=== PATIENT | female | born 1955 | race Caucasian/White ===

== ENCOUNTER 2017-01-10 13:01 | Emergency (ER) | payer MEDICARE, OTHER ==
[~2017-01-10] VITALS: Ht 157.5 cm; Wt 54.5 kg
[~2017-01-10 13:01] MED LIST: ASPI325T PO; CYMB30CA PO; FEXO180 PO; LOMO PO; OXYC15TA PO; OXYC40 PO; VALT500T PO; [UNRECOGNIZED DRUG - OTHER] PO
[2017-01-10 13:03] VITALS: BP 198/80; PULSE 75; RESP 20; TEMP 98.1; O2SAT 99
[2017-01-10 13:09] VITALS: BP 169/74; PULSE 64; RESP 16; TEMP 98; O2SAT 95
--- NOTE | 2017-01-10 13:13 | PD ---
Physical Exam Date Seen by Provider: January 10, 2017 Time Seen by Provider: 13:09 Narrative 61 YOWF HERE UNDER EXPARTE FOR SUBSTANCE ABUSE. H/O MULTIPLE MYELOMA. VSS wating for bed asignment Data Data Last Documented VS Vital Signs Date Time Temp Pulse Resp B/P Pulse Ox O2 Delivery O2 Flow Rate FiO2 01/10/17 13:03 98.1 75 20 198/80 99 Room Air MDM Medical Record Reviewed: No Supervised Visit with BETHANY: Poncho Bravo January 10, 2017 13:13
--- NOTE | 2017-01-10 15:10 | PD ---
HPI Chief Complaint: Psychiatric Symptoms Time Seen by Provider: 14:50 Travel History International Travel<30 days: No Contact w/Intl Traveler<30days: No Traveled to known affect area: No History of Present Illness HPI The patient is 61 years old and arrives to the ER as an ex-parte. Evidently the patient's family pursued the court order because the patient was taking pain medication and xanax to the point of stuporous behavior, drooling, potentially dropping a cigarette in her house and inability to care for herself. Pt has fallen and broken her hip, spilled drinks, and lost consciousness upon standing. These tendencies appear more prominent refer the patient fills her medications. Here she denies HI/SI. She states she has chronic pain, cancer and is managing her pain with her prescription meds. PFSH Past Medical History Anxiety: Yes Cancer: Yes (mutiple myloma) Cardiovascular Problems: No Chemotherapy: Yes (ORAL) Diabetes: Yes Patient Takes Glucophage: No Endocrine: No Genitourinary: No Hepatitis: No Hiatal Hernia: No Immune Disorder: Yes (multiple myloma) Musculoskeletal: No Neurologic: No Psychiatric: No Reproductive: Yes (lesion on the vulva) Respiratory: No Integumentary: Yes (skin CA) Thyroid Disease: No Tetanus Vaccination: < 5 Years Past Surgical History Abdominal Surgery: Yes (lap ibis) AICD: No Cholecystectomy: Yes Gynecologic Surgery: Yes (exp lap removal right ovarian cyst cristela with bso) Hysterectomy: Yes Joint Replacement: Yes (kelsie place in rt hip) Pacemaker: No Social History Alcohol Use: No Tobacco Use: Yes (ppd) Substance Use: No Allergies-Medications (Allergen,Severity, Reaction): Coded Allergies: Dilaudid (Verified Allergy, Intermediate, 12/05/15) severe nausea and vomiting Morphine (Verified Allergy, Intermediate, severe nausea, 12/05/15) Zofran (Verified Allergy, Intermediate, arrythmia, 12/05/15) iv zofran causes arrythmia Reported Meds & Prescriptions Reported Meds & Active Scripts Active Reported [revlimig] 5 mg 1 PO HS Cymbalta (Duloxetine HCl) 30 Mg Cap 60 Mg PO DAILY Lomotil (Diphenoxylate HCl/Atropine) 1 Tab Tab 1 Tab PO Q6H PRN Oxycodone (Oxycodone HCl) 15 Mg Tab 15 Mg PO Q4H PRN Valtrex (Valacyclovir HCl) 500 Mg Tab 500 Mg PO DAILY Madelyn Allergy (Fexofenadine Hcl) 180 Mg Tab 180 Mg PO DAILY OxyCONTIN ER (Oxycodone HCl) 40 Mg Tabcr 40 Mg PO BID PRN Aspirin 325 mg (Aspirin) 325 Mg Tab 325 Mg PO DAILY Review of Systems Except as stated in HPI: all other systems reviewed are Neg Physical Exam Narrative GENERAL: 61 yo F, WNWD, cooperative, pleasant SKIN: Warm and dry. Hyperpigmented lesions about the second medical carpophalangeal articulation is bilaterally. HEAD: Atraumatic. Normocephalic. EYES: Pupils equal and round. No scleral icterus. No injection or drainage. ENT: No nasal bleeding or discharge. Mucous membranes pink and moist. NECK: Trachea midline. No JVD. CARDIOVASCULAR: Regular rate and rhythm. RESPIRATORY: No accessory muscle use. Clear to auscultation. Breath sounds equal bilaterally. GASTROINTESTINAL: Abdomen soft, non-tender, nondistended. Hepatic and splenic margins not palpable. MUSCULOSKELETAL: Extremities without clubbing, cyanosis, or edema. No obvious deformities. NEUROLOGICAL: Awake and alert. No obvious cranial nerve deficits. Motor grossly within normal limits. Five out of 5 muscle strength in the arms and legs. Normal speech. PSYCHIATRIC: Appropriate mood and affect; insight and judgment normal. Data Data Last Documented VS Vital Signs Date Time Temp Pulse Resp B/P Pulse Ox O2 Delivery O2 Flow Rate FiO2 01/10/17 14:52 16 01/10/17 13:09 98.0 64 169/74 95 01/10/17 13:03 Room Air Orders Complete Blood Count With Diff (01/10/17 15:04) Comprehensive Metabolic Panel (01/10/17 15:04) Psych Screen (01/10/17 15:04) Drug Screen, Random Urine (01/10/17 15:04) Alcohol (Ethanol) (01/10/17 15:04) Salicylates (Aspirin) (01/10/17 15:04) Tylenol (Acetaminophen) (01/10/17 15:04) Potassium Chloride (Kcl) (01/10/17 17:15) Labs Laboratory Tests Test 01/10/17 15:30 White Blood Count 4.2 TH/MM3 Red Blood Count 2.65 MIL/MM3 Hemoglobin 9.5 GM/DL Hematocrit 27.2 % Mean Corpuscular Volume 102.7 FL Mean Corpuscular Hemoglobin 35.9 PG Mean Corpuscular Hemoglobin 34.9 % Concent Red Cell Distribution Width 20.8 % Platelet Count 98 TH/MM3 Mean Platelet Volume 7.9 FL Neutrophils (%) (Auto) 60.8 % Lymphocytes (%) (Auto) 25.4 % Monocytes (%) (Auto) 10.8 % Eosinophils (%) (Auto) 2.4 % Basophils (%) (Auto) 0.6 % Neutrophils # (Auto) 2.5 TH/MM3 Lymphocytes # (Auto) 1.1 TH/MM3 Monocytes # (Auto) 0.4 TH/MM3 Eosinophils # (Auto) 0.1 TH/MM3 Basophils # (Auto) 0.0 TH/MM3 CBC Comment AUTO DIFF Differential Comment AUTO DIFF CONFIRMED Sodium Level 143 MEQ/L Potassium Level 2.9 MEQ/L Chloride Level 108 MEQ/L Carbon Dioxide Level 26.2 MEQ/L Anion Gap 9 MEQ/L Blood Urea Nitrogen 8 MG/DL Creatinine 1.07 MG/DL Estimat Glomerular Filtration 52 ML/MIN Rate Random Glucose 84 MG/DL Calcium Level 8.6 MG/DL Total Bilirubin 0.2 MG/DL Aspartate Amino Transf 15 U/L (AST/SGOT) Alanine Aminotransferase 10 U/L (ALT/SGPT) Alkaline Phosphatase 115 U/L Total Protein 6.2 GM/DL Albumin 3.2 GM/DL Salicylates Level 4.3 MG/DL Acetaminophen Level 2.4 MCG/ML Ethyl Alcohol Level LESS THAN 3 MG/DL MDM Medical Decision Making Medical Screen Exam Complete: Yes Emergency Medical Condition: Yes Medical Record Reviewed: Yes Differential Diagnosis Altered mental status/psychosis due to infection/environmental exposure/ metabolic abnormality, polypharmacy, alcohol abuse/intoxication, illicit or prescribed drug abuse, malingering/secondary gain, non-organic psychiatric disease Narrative Course The history of present illness, ROS, physical exam, review of records and medical workup performed for today's visit have reasonably safely excluded organic etiologies for the patient's presenting complaint. We will continue to monitor the patient carefully in the ER until time of evaluation by the psychiatry service. We are available for any additional medical assistance if needed during the patient's ER course. Disposition per discretion of psychiatry is appreciated. CBC & BMP Diagram 01/10/17 15:30 Total protein 6.2 Albumin 3.2 EtOH < 3 APAP 2.4 Slicylates 4.3 Diagnosis Primary Impression: Suicidal risk Segun Jensen MD January 10, 2017 15:10
[2017-01-10 15:53] LABS: AUTOMATED NEUTROPHIL # 2.5 TH/MM3 (1.8-7.7); BASOPHIL % 0.6 % (0.0-2.0); EOSINOPHIL # 0.1 TH/MM3 (0-0.4); EOSINOPHIL % 2.4 % (0.0-4.0); HEMATOCRIT 27.2 % (35.0-46.0); LYMPH % 25.4 % (9.0-44.0); LYMPHOCYTE # 1.1 TH/MM3 (1.0-4.8); MEAN CELL VOLUME 102.7 FL (80.0-100.0); MEAN CORPUSCULAR HEMOGLOBIN 35.9 PG (27.0-34.0); MEAN CORPUSCULAR HGB CONC 34.9 % (32.0-36.0); MONO % 10.8 % (0.0-8.0); NEUT % 60.8 % (16.0-70.0); PLATELET COUNT 98 TH/MM3 (150-450); RED BLOOD COUNT 2.65 MIL/MM3 (4.00-5.30); RED CELL DISTRIBUTION WIDTH 20.8 % (11.6-17.2); WHITE BLOOD COUNT 4.2 TH/MM3 (4.0-11.0)
[2017-01-10 16:35] LABS: ACETAMINOPHEN 2.4 MCG/ML (10.0-30.0); ALKALINE PHOSPHATASE 115 U/L (45-117); ALT (GPT) 10 U/L (10-53); ANION GAP 9 MEQ/L (5-15); AST (GOT) 15 U/L (15-37); BICARBONATE 26.2 MEQ/L (21.0-32.0); BLOOD UREA NITROGEN 8 MG/DL (7-18); CHLORIDE 108 MEQ/L (98-107); GLOMERULAR FILTRATION RATE 52 ML/MIN (>89); SODIUM (NA) 143 MEQ/L (136-145); TOTAL BILIRUBIN ADULT 0.2 MG/DL (0.2-1.0)
[2017-01-10 16:41] LABS: POTASSIUM 2.9 MEQ/L (3.5-5.1)
[2017-01-10 16:55] LABS: HEMO FLAGS AUTO DIFF; SCAN/DIFF AUTO DIFF CONFIRMED
[2017-01-10] MEDS ORDERED: POTASSIUM CHLORIDE 20 MEQ CONTROLLED RELEASE TAB PO ONE (17:15)
[2017-01-10 18:19] LABS: AMPHETAMINE, URINE NEG (NEG); BARBITURATES, URINE NEG (NEG); COCAINE, URINE NEG (NEG)
[2017-01-10 20:25] VITALS: BP 180/87; PULSE 73; RESP 16; O2SAT 98
[2017-01-10] MEDS ORDERED: ACETAMINOPHEN/HYDROcodone 325 MG/5 MG TAB PO ONE (20:30)
[2017-01-11] MEDS ORDERED: IMODTAB (02:40)
[2017-01-11] MEDS ORDERED: ALPR.5 PO (02:40)
[2017-01-11] MEDS ORDERED: VALA500T PO (02:40)
[2017-01-11] MEDS ORDERED: [UNRECOGNIZED DRUG - OTHER] PO (02:40)
[2017-01-11] MEDS ORDERED: OXYC15TA PO (02:40)
[2017-01-11] MEDS ORDERED: CYMB60CA PO (02:40)
[2017-01-11] MEDS ORDERED: LOMO2.5T PO (02:40)
[2017-01-11] MEDS ORDERED: ASPI325T PO (02:40)
[2017-01-11] MEDS ORDERED: OXYC-406 PO (02:40)
[2017-01-11 04:20] VITALS: BP 135/67; PULSE 65; RESP 16; O2SAT 97
[2017-01-11] MEDS ORDERED: IBUPROFEN 600 MG TAB PO ONE (04:30)
[2017-01-11] MEDS ORDERED: ACETAMINOPHEN 325 MG TAB PO ONE (04:30)
[2017-01-11 07:30] VITALS: BP 128/68; PULSE 78; RESP 14; O2SAT 97
[2017-01-11] MEDS ORDERED: LOPERAMIDE HCL 2 MG CAP PO PRN (09:45)
[2017-01-11 12:04] VITALS: BP 151/71; PULSE 66; RESP 16; TEMP 98.2; O2SAT 97
[2017-02-20] MEDS ORDERED: OXYCONTIN PO (08:28)
== END 2017-01-11 14:35 | disposition home or self-care (01) ==
LOC: NEPC 13:01 → NEPD 01-11 14:35
DX: Z04.6 Encounter for general psychiatric examination, requested by authority (principal); F41.9 Anxiety disorder, unspecified; F17.210 Nicotine dependence, cigarettes, uncomplicated
CPT/HCPCS: 80053; 80307; 85025; 99283

== ENCOUNTER → 2017-02-20 | Day surgery (SDC) | payer MEDICARE ==
[~2017-02-20] MED LIST changes: +ALPR.5 PO; +CHLORHEXIDINE GLUCONATE 2 % 1 PACK (2 CLOTHS) TOPICAL PRN; +CYCLOPENTOLATE HCL 1% OPHT SOLN 2 ML BTL ONE; -CYMB30CA PO; +CYMB60CA PO; -FEXO180 PO; +FLURBIPROFEN 0.03% OPHT SOLN 2.5 ML BTL ONE; +IMODTAB; +INSULIN HUMAN REGULAR 1,000 UNITS/10 ML VIAL SQ PRN; +LACTATED RINGER'S 1000 ML IV PRN; +LIDOCAINE HCL 1% PF 30 ML VIAL ONE; +LIDOCAINE HCL 2% JELLY 5 ML SYRINGE ONE; +LIDOCAINE HCL 2% JELLY 5 ML SYRINGE RIGHT EYE ONE; -LOMO PO; +LOMO2.5T PO; +METOPROLOL TARTRATE 25 MG TAB PO PRN; +MIDAZOLAM HCL 2 MG/2 ML VIAL ONE; +OXYC-406 PO; -OXYC40 PO; +OXYCONTIN PO; +PHENYLEPHRINE HCL 10% OPTH SOLN 5 ML BTL ONE; +POVIDONE IODINE 5% (ANTISEPSIS KIT) 4 APPLICATIONS EACH NARE PRN; +PROPARACAINE HCL 0.5% OPHT SOLN 15 ML BTL ONE; +PROPARACAINE HCL 0.5% OPHT SOLN 15 ML BTL RIGHT EYE ONE; +SODIUM CHLORID 0.9% 500 ML IV PRN; +TOBRAMYCIN/DEXAMETHASONE OPTH OINT 3.5 GM TUBE ONE; +TROPICAMIDE 1% OPHT SOLN 15 ML BTL ONE; +VALA500T PO; -VALT500T PO; +[UNRECOGNIZED DRUG - OTHER] PO; -[UNRECOGNIZED DRUG - OTHER] PO
[2017-02-20] MEDS: TROPICAMIDE 1% OPHT SOLN 15 ML BTL RIGHT EYE SCH ×4 (08:20→08:35)
[2017-02-20] MEDS: FLURBIPROFEN 0.03% OPHT SOLN 2.5 ML BTL RIGHT EYE SCH ×4 (08:20→08:35)
[2017-02-20] MEDS: PHENYLEPHRINE HCL 10% OPTH SOLN 5 ML BTL RIGHT EYE SCH ×4 (08:20→08:35)
[2017-02-20] MEDS: CYCLOPENTOLATE HCL 1% OPHT SOLN 2 ML BTL RIGHT EYE SCH ×4 (08:20→08:35)
[2017-02-20 10:10] VITALS: BP 168/93; PULSE 78; RESP 16; O2SAT 98
--- NOTE | 2017-02-21 10:54 | MP ---
cc: MAURICIO RODRIGUEZ M.D. [facility] #[id number] DATE OF SURGERY 02/20/2017 PREOPERATIVE DIAGNOSIS Visually significant cataract right eye. POSTOPERATIVE DIAGNOSIS Visually significant cataract right eye. OPERATION Phacoemulsification with posterior chamber lens implantation, right eye. SURGEON Mauricio Rodriguez MD ANESTHESIA Topical with MAC COMPLICATIONS None PROCEDURE After informed consent was obtained, the patient was brought into the operative suite and placed on appropriate monitors by the Anesthesia Service. The patient had been given dilating drops and topical lidocaine gel in the holding area. The patient's operative eye was then prepped and draped in the usual sterile fashion. A wire lid speculum was placed. Further 2% lidocaine was then dropped on the cornea prior to beginning the procedure. A paracentesis incision was made in the peripheral cornea with a 1 mm brendan keratome. The anterior chamber was filled with viscoelastic. The anterior chamber was then entered through a stepped, clear corneal incision using a sharp 3 mm brendan keratome. A circular tear capsulorrhexis was then made with a bent needle cystitome. Following hydrodissection of the lens nucleus with balance saline, phacoemulsification of the nucleus was performed using a modified chopping technique. The remaining cortex was removed with irrigation/aspiration. The prior two procedures were both performed using the handpieces of the [employer] phaco unit. The capsular bag was then filled with viscoelastic. The intraocular lens was then injected into the capsular bag and positioned. The type of intraocular lens and its power can be found elsewhere in this chart. The remaining viscoelastic was then removed from the anterior chamber with the IA handpiece. The anterior chamber was reformed with balanced saline. The wound was then closed securely with stromal hydration. It was found to be watertight to an intraocular pressure of at least 30 mmHg by palpation. A small amount of balanced salt solution was then removed through the paracentesis site and the intraocular pressure at the end of the case was approximately 20 by palpation. All drapes were then removed. TobraDex ointment was then placed in the eye, which was closed beneath a semi-pressure patch dressing. The patient tolerated this procedure well and left the operating room awake and alert. The patient is to follow-up in my office in the morning. ADDENDUM In the preop holding area, the patient had commented that she had increasing blurry vision with floaters in the operative eye. When we examined her under the microscope prior to her surgery, it was obvious there was a rather large amount of vitreous hemorrhage present. We decided to proceed with the cataract surgery as it may offer a clear view into her retina to determine the source of the vitreous hemorrhage. There were no complications during her surgery related to the vitreous hemorrhage. MD MARCIANO Ruiz/ZOYA /10:26 AM /10:56 AM
== END | disposition home or self-care (01) ==
LOC: PHSDC 07:07
PROVIDERS: ATTEND Optometrist Occupational Vision
DX: H25.811 Combined forms of age-related cataract, right eye (principal); H52.13 Myopia, bilateral; H35.371 Puckering of macula, right eye; H43.813 Vitreous degeneration, bilateral; H04.123 Dry eye syndrome of bilateral lacrimal glands; H52.203 Unspecified astigmatism, bilateral; H43.391 Other vitreous opacities, right eye; H53.8 Other visual disturbances; H43.11 Vitreous hemorrhage, right eye; I12.9 Hypertensive chronic kidney disease with stage 1 through stage 4 chronic kidney disease, or unspecified chronic kidney disease; N18.9 Chronic kidney disease, unspecified; E87.6 Hypokalemia; E78.5 Hyperlipidemia, unspecified; R01.1 Cardiac murmur, unspecified; D47.3 Essential (hemorrhagic) thrombocythemia; E55.9 Vitamin D deficiency, unspecified
CPT/HCPCS: 00142; 66984; J2250; J7040; V2632

== ENCOUNTER → 2017-04-10 | Day surgery (SDC) | payer MEDICARE ==
[~2017-04-10] VITALS: Ht 160 cm; Wt 50.0 kg
[~2017-04-10] MED LIST changes: +ACETAMINOPHEN 325 MG TAB PO PRN; -CYCLOPENTOLATE HCL 1% OPHT SOLN 2 ML BTL ONE; +FEXO180T PO; -FLURBIPROFEN 0.03% OPHT SOLN 2.5 ML BTL ONE; +HYALURONIDASE/LIDOCAINE/EPINEPHRINE/BUPIVACAINE 6 ML SYR LEFT EYE ONE; -LIDOCAINE HCL 2% JELLY 5 ML SYRINGE ONE; -LIDOCAINE HCL 2% JELLY 5 ML SYRINGE RIGHT EYE ONE; -MIDAZOLAM HCL 2 MG/2 ML VIAL ONE; -OXYC-406 PO; -PHENYLEPHRINE HCL 10% OPTH SOLN 5 ML BTL ONE; +PROPARACAINE HCL 0.5% OPHT SOLN 15 ML BTL LEFT EYE ONE; -PROPARACAINE HCL 0.5% OPHT SOLN 15 ML BTL ONE; -PROPARACAINE HCL 0.5% OPHT SOLN 15 ML BTL RIGHT EYE ONE; +PROPOFOL 200 MG/20 ML AMP ONE; -TROPICAMIDE 1% OPHT SOLN 15 ML BTL ONE
[2017-04-10 08:40] VITALS: BP 195/94; PULSE 71; RESP 16; TEMP 97.5; O2SAT 100
[2017-04-10 08:45] VITALS: PULSE 71
[2017-04-10] MEDS: TROPICAMIDE 1% OPHT SOLN 15 ML BTL LEFT EYE SCH ×4 (08:55→09:10)
[2017-04-10] MEDS: FLURBIPROFEN 0.03% OPHT SOLN 2.5 ML BTL LEFT EYE SCH ×4 (08:55→09:10)
[2017-04-10] MEDS: PHENYLEPHRINE HCL 10% OPTH SOLN 5 ML BTL LEFT EYE SCH ×4 (08:55→09:10)
[2017-04-10] MEDS: CYCLOPENTOLATE HCL 1% OPHT SOLN 2 ML BTL LEFT EYE SCH ×4 (08:55→09:10)
[2017-04-10 09:35] VITALS: PULSE 95
[2017-04-10 11:00] VITALS: BP 142/82; PULSE 72; RESP 16; TEMP 98; O2SAT 97
--- NOTE | 2017-04-11 13:20 | MP ---
cc: MAURICIO RODRIGUEZ M.D. DATE OF SURGERY: 04/10/2017. [facility] NUMBER: [id number]. PREOPERATIVE DIAGNOSIS Visually significant cataract left eye. POSTOPERATIVE DIAGNOSIS Visually significant cataract left eye. OPERATION Phacoemulsification with posterior chamber lens implantation, left eye. SURGEON Mauricio Rodriguez MD ANESTHESIA Retrobulbar with MAC. COMPLICATIONS None DESCRIPTION OF THE PROCEDURE IN DETAIL: After informed consent was obtained, the patient was brought into the operative suite and placed on appropriate monitors by the Anesthesia Service. The patient had received a prior retrobulbar injection of local anesthetic by the Anesthesia Service in the holding area. The patient's operative eye was then prepped and draped in the usual sterile fashion. A wire lid speculum was placed. A paracentesis incision was made in the peripheral cornea with a 1 mm brendan keratome. The anterior chamber was filled with viscoelastic. The anterior chamber was then entered through a stepped, clear corneal incision using a sharp 3 mm brendan keratome. A circular tear capsulorrhexis was then made with a bent needle cystitome. Following hydrodissection of the lens nucleus with balanced saline, phacoemulsification of the nucleus was performed using a modified chopping technique. The remaining cortex was removed with irrigation/aspiration. The prior two procedures were both performed using the handpieces of the [employer] phaco unit. The capsular bag was then filled with viscoelastic. The intraocular lens was then injected into the capsular bag and positioned. The type of intraocular lens and its power can be found elsewhere in this chart. The remaining viscoelastic was then removed from the anterior chamber with the IA handpiece. The anterior chamber was reformed with balanced saline. The wound was then closed securely with stromal hydration. It was found to be watertight to an intraocular pressure of at least 30 mmHg by palpation. A small amount of balanced salt solution was then removed through the paracentesis site and the intraocular pressure at the end of the case was approximately 20 by palpation. All drapes were then removed. TobraDex ointment was then placed in the eye, which was closed beneath a semi-pressure patch dressing. The patient tolerated this procedure well and left the operating room awake and alert. The patient is to follow-up in my office in the morning. MD MARCIANO Ruiz/TONJA /10:51 AM /1:12 PM
== END | disposition home or self-care (01) ==
LOC: PHSDC 07:35
PROVIDERS: ATTEND Optometrist Occupational Vision
DX: H25.812 Combined forms of age-related cataract, left eye (principal); H43.813 Vitreous degeneration, bilateral; H04.123 Dry eye syndrome of bilateral lacrimal glands; R01.1 Cardiac murmur, unspecified; E78.5 Hyperlipidemia, unspecified; I12.9 Hypertensive chronic kidney disease with stage 1 through stage 4 chronic kidney disease, or unspecified chronic kidney disease; N18.9 Chronic kidney disease, unspecified; D61.818 Other pancytopenia; E87.6 Hypokalemia; F17.210 Nicotine dependence, cigarettes, uncomplicated; M10.9 Gout, unspecified; M85.80 Other specified disorders of bone density and structure, unspecified site; I70.0 Atherosclerosis of aorta; K21.9 Gastro-esophageal reflux disease without esophagitis; G62.9 Polyneuropathy, unspecified; D80.1 Nonfamilial hypogammaglobulinemia; E55.9 Vitamin D deficiency, unspecified; D47.3 Essential (hemorrhagic) thrombocythemia; C90.00 Multiple myeloma not having achieved remission
CPT/HCPCS: 00142; 66984; J7040; V2632